=== PATIENT | male | born 1995 | race Caucasian/White ===

== ENCOUNTER 2017-02-06 17:14 | Emergency (ER) | payer OTHER ==
[~2017-02-06] VITALS: Ht 188 cm; Wt 57.5 kg
[~2017-02-06 17:14] MED LIST: CITRATE OF MAG296 ML PO; HYDROCODON-ACE1 EAC7 PO; KEFLEX500 MG PO; ZOFRAN ODT4 MG PO
[2017-02-06] MEDS ORDERED: MOTRIN800 MG PO (19:43)
[2017-02-06] MEDS ORDERED: VALIUM5 MG PO (19:43)
[2017-02-06] MEDS ORDERED: NORCO 7.5/321 TABLET PO (19:43)
[2017-02-06 20:41] VITALS: BP 149/68
== END 2017-02-06 20:43 | disposition home or self-care (01) ==
LOC: EME 17:14
DX: S16.1XXA Strain of muscle, fascia and tendon at neck level, initial encounter (principal); S39.012A Strain of muscle, fascia and tendon of lower back, initial encounter; V44.6XXA Car passenger injured in collision with heavy transport vehicle or bus in traffic accident, initial encounter; Y92.410 Unspecified street and highway as the place of occurrence of the external cause; F17.200 Nicotine dependence, unspecified, uncomplicated
CPT/HCPCS: 72040; 72100; 99281; 99284

== ENCOUNTER 2017-04-07 03:17 | Emergency (ER) | payer OTHER ==
[~2017-04-07] VITALS: Ht 188 cm; Wt 55.1 kg
[~2017-04-07 03:17] MED LIST changes: +MOTRIN800 MG PO; +NORCO 7.5/321 TABLET PO; +VALIUM5 MG PO
[2017-04-07] MEDS ORDERED: MOTRIN800 MG PO (05:42)
[2017-04-07] MEDS ORDERED: KEFLEX500 MG PO (05:42)
[2017-04-07 06:07] VITALS: BP 128/70
== END 2017-04-07 06:08 | disposition home or self-care (01) ==
LOC: EME 03:17
DX: S91.011A Laceration without foreign body, right ankle, initial encounter (principal); Y28.0XXA Contact with sharp glass, undetermined intent, initial encounter; Z23 Encounter for immunization; F17.200 Nicotine dependence, unspecified, uncomplicated
CPT/HCPCS: 73610; 99281; 99284

== ENCOUNTER 2017-12-17 14:35 | Emergency (ER) | payer OTHER ==
[2017-12-17 14:51] LABS: BASOPHIL (%) 0.6 % (0-1); BASOPHIL COUNT 0.1 K/uL (0-0.1); EOSINOPHIL (%) 1.7 % (0-5); EOSINOPHIL COUNT 0.2 K/uL (0-0.3); HEMATOCRIT 47.8 % (38.0-50.0); HEMOGLOBIN 16.2 G/DL (12.5-16.6); IMMATURE GRANULOCYTE (%) 0.6 % (0.0-0.7); LYMPHOCYTE COUNT 4.2 K/uL (1.0-2.8); MCH 30.6 PG (29.0-34.0); MCHC 33.9 G/DL (30.0-36.0); MCV 90.2 FL (86-99); MONOCYTE (%) 6.6 % (3-12); MONOCYTE COUNT 0.8 K/uL (0-0.8); NEUTROPHIL (%) 55.5 % (45-76); NEUTROPHIL COUNT 6.6 K/uL (1.8-6.4); PLATELET COUNT 316 K/uL (156-360); RBC DIS.WIDTH-CV 13.2 % (11.8-14.6); WHITE BLOOD COUNT 11.9 K/uL (4.1-10.2)
[2017-12-17 14:59] LABS: AMYLASE 50 IU/L (1-118); CHLORIDE 106 mEq/L (99-109); POTASSIUM 4.3 mEq/L (3.7-5.4); SODIUM 143 mEq/L (136-147)
[2017-12-17 15:01] LABS: GLUCOSE 127 mg/dL (70-99)
[2017-12-17 15:04] LABS: SERUM ETHYL ALCOHOL < 10 mg/dL
[2017-12-17 15:05] LABS: GFR ESTIMATE (CALCULATED) > 59 mL/min/ (58.99-99999); UREA NITROGEN (BUN) 20 mg/dL (9-23)
[2017-12-17 15:08] LABS: LIPASE 28 U/L (1.0-51.0)
[2017-12-17] MEDS ORDERED: PERCOCET 5/31 TABLET PO (17:32)
== END 2017-12-17 17:31 | disposition home or self-care (01) ==
LOC: TRA 14:35
PROVIDERS: Emergency Medicine
DX: S43.402A Unspecified sprain of left shoulder joint, initial encounter (principal); S80.02XA Contusion of left knee, initial encounter; S01.81XA Laceration without foreign body of other part of head, initial encounter; S91.311A Laceration without foreign body, right foot, initial encounter; S20.312A Abrasion of left front wall of thorax, initial encounter; S20.311A Abrasion of right front wall of thorax, initial encounter; S80.212A Abrasion, left knee, initial encounter; M79.602 Pain in left arm; M25.062 Hemarthrosis, left knee; F12.90 Cannabis use, unspecified, uncomplicated; F10.99 Alcohol use, unspecified with unspecified alcohol-induced disorder; V03.90XA Pedestrian on foot injured in collision with car, pick-up truck or van, unspecified whether traffic or nontraffic accident, initial encounter; Z23 Encounter for immunization
CPT/HCPCS: 70450; 70486; 71045; 71260; 72125; 72129; 72132; 73030; 73090; 73560; 73590; 73630; 74177; 80048; 81003; 82150; 83690; 85025; 86850; 86900; 86901; 99281; 99285; G0480; J2270; J3010